=== PATIENT | female | born 1965 | race Caucasian/White ===

== ENCOUNTER → 2017-05-29 | Outpatient (CLI) | payer BC ==
[~2017-05-29] MED LIST: ONE DAILY1 TA1 PO; VENOFER IV; VITAMIN C500 MG PO
== END ==
LOC: MC.RAD 13:56
DX: Z12.31 Encounter for screening mammogram for malignant neoplasm of breast (principal)

== ENCOUNTER → 2018-12-10 | Outpatient (CLI) | payer BC | LOC: MC.RAD 08:40 | DX: Z12.31 Encounter for screening mammogram for malignant neoplasm of breast (principal) ==

== ENCOUNTER → 2020-02-04 | Outpatient (CLI) | payer BC | LOC: COL.RAD 07:55 | DX: R10.11 Right upper quadrant pain (principal); Z90.49 Acquired absence of other specified parts of digestive tract ==

== ENCOUNTER → 2020-12-01 | Outpatient (CLI) | payer BC ==
[~2020-12-01] MED LIST changes: +ALEVE 220MG220 MG PO; +ASPIRIN E.C. 8181 MG PO; +CALCIUM 600MG+D1 TAB PO; +D3-5050000 IU PO; +HCTZ12.5TAB PO; +MUCINEX DM 30 M1 TE1; +PHARMASSURE ZIN50 MG PO; +SKYRIZI75 MG/0.83 SQ; +TYLENOL 325MG325 MG PO; +VITAMINC1000TA PO
== END ==
LOC: MC.RAD 14:14
DX: Z12.31 Encounter for screening mammogram for malignant neoplasm of breast (principal)

== ENCOUNTER 2021-05-28 14:13 | Outpatient (CLI) | payer BC ==
[~2021-05-28] VITALS: Ht 157.5 cm; Wt 105.4 kg
[2021-05-28] VITALS (7 sets, daily range): BP systolic 125–157; BP diastolic 73–94; PULSE 62–70; TEMP 97–98
--- NOTE | 2021-05-28 15:40 | NUR ---
Pt tolerated infusion without issue. INT DC'd with catheter intact. She is escorted out to ED entrance.
== END 2021-05-28 16:00 | disposition home or self-care (01) ==
LOC: EUO 14:13
DX: U07.1 COVID-19 (principal)
CPT/HCPCS: Q0244

== ENCOUNTER → 2022-10-04 | Outpatient (CLI) | payer BC | LOC: COL.LAB 10:25 → ZCOL.LAB 10:25 | DX: K92.1 Melena (principal) ==

== ENCOUNTER → 2023-11-28 | Outpatient (CLI) | payer BC ==
[~2023-11-28] MED LIST changes: +COMPLETE MULTI1 TAB PO; +SKYRIZI150 MG/1 M SQ; -SKYRIZI75 MG/0.83 SQ; +TYLENOL 500MG500 MG PO
== END ==
LOC: MC.RAD 08:52
DX: Z12.31 Encounter for screening mammogram for malignant neoplasm of breast (principal)